=== PATIENT | female | born 1975 | race Two or more races ===

== ENCOUNTER 2016-11-01 19:42 | Emergency (ER) | payer MEDICAID ==
[~2016-11-01] VITALS: Ht 152.4 cm; Wt 87.1 kg
[2016-11-01] MEDS ORDERED: PRENATAL 19 TA1 EAC1 PO (19:51)
[2016-11-01 19:55] VITALS: BP 128/74
[2016-11-01 20:47] LABS: BASOPHILS % (AUTO) 1.4 % (0.0-2.0); EOSINOPHILS % (AUTO) 0.5 % (0.0-3.0); LYMPHOCYTES % (AUTO) 29.7 % (20.0-45.0); MEAN CORPUSCULAR HEMOGLOBIN 30.7 PG (27.0-31.0); MEAN CORPUSCULAR HGB CONC 34.3 G/DL (32.0-36.0); MEAN CORPUSCULAR VOLUME 90 FL (80-99); MEAN PLATELET VOLUME 7.7 FL (6.5-10.1); MONOCYTES % (AUTO) 5.9 % (1.0-10.0); NEUTROPHILS % (AUTO) 62.5 % (45.0-75.0); PLATELET COUNT 226 K/UL (150-450); RED BLOOD COUNT 4.38 M/UL (4.20-5.40); RED CELL DISTRIBUTION WIDTH 12.5 % (11.6-14.8); WHITE BLOOD COUNT 8.6 K/UL (4.8-10.8)
[2016-11-01 20:50] LABS: APPEARANCE,URINE CLEAR; KETONES,URINE NEGATIVE (NEGATIVE); LEUKOCYTE ESTERASE ,URINE NEGATIVE (NEGATIVE); NITRITE,URINE NEGATIVE (NEGATIVE); PH,URINE 6 (4.5-8.0); PROTEIN,URINE NEGATIVE (NEGATIVE); UROBILINOGEN,URINE NORMAL MG/DL (0.0-1.0)
[2016-11-01 20:55] LABS: INR 0.9 (0.9-1.1); PROTHROMBIN TIME 9.3 SEC (9.30-11.50)
[2016-11-01 21:03] LABS: ALANINE AMINOTRANSFERASE 11 U/L (3-33); ALBUMIN/GLOBULIN RATIO 1.4 (1.0-2.7); ANION GAP 14 (5-15); ASPARTATE AMINO TRANSFERASE 15 U/L (5-40); CALCIUM 9.6 mg/dL (8.6-10.2); CARBON DIOXIDE 22 mEQ/L (20-30); CHLORIDE 101 mEQ/L (98-107); CREATININE 0.7 mg/dL (0.5-0.9); GLOMERULAR FILTRATION RATE > 60 mL/min (>60); HEMOLYSIS 33; SODIUM 137 mEQ/L (135-145); TOTAL PROTEIN 7.1 g/dL (6.6-8.7)
[2016-11-01 21:11] LABS: BACTERIA,URINE FEW /HPF; SQUAMOUS EPITHELIAL CELL,UR FEW /LPF (NONE/OCC); WBC,URINE 0-2 /HPF (0 - 2)
--- NOTE | 2016-11-01 21:56 | Emergency Room Report ---
History of Present Illness General Chief Complaint: Vaginal Source: Patient Present Illness HPI The patient is a 41-year-old female at 5 weeks gestation by dates presenting for vaginal bleeding for the past 3 days. She is also complaining of abdominal pain and cramping described as an 8/10 to the mid lower abdomen. No known provoking or relieving factors. She did notice a small piece of tissue pass prior to arrival. She was seen by her primary doctor on 10/26 and had a beta quantitative of 4650. She denies any other symptoms including nausea, vomiting, fever, chills, back pain, dysuria, vaginal discharge Allergies: Coded Allergies: No Known Allergies (Unverified , 11/01/16) Patient History Past Medical History: see triage record Pertinent Family History: none Last Menstrual Period: 10 01 Now: Yes - 5 weeks : 3 Para: 2 Reviewed Nursing Documentation: PMH: Agreed, PSxH: Agreed Nursing Documentation-PMH Past Medical History: No Stated History Review of Systems All Other Systems: negative except mentioned in HPI Physical Exam Vital Signs Date Time Temp Pulse Resp B/P Pulse Ox O2 Delivery O2 Flow Rate FiO2 11/01/16 19:46 97.9 73 16 128/74 99 Room Air Sp02 EP Interpretation: reviewed, normal General Appearance: no apparent distress, alert, GCS 15, non-toxic Head: normocephalic, atraumatic Eyes: bilateral eye PERRL, bilateral eye normal inspection ENT: hearing grossly normal, normal pharynx, no angioedema, normal voice Neck: full range of motion, supple/symm/no masses Gastrointestinal: normal bowel sounds, soft, non-distended, no guarding, no rebound Genitourinary: normal inspection, no CVA tenderness Musculoskeletal: back normal, gait/station normal, normal range of motion, non- tender Neurologic: alert, oriented x3, responsive, motor strength/tone normal, sensory intact, speech normal Psychiatric: judgement/insight normal, memory normal, mood/affect normal, no suicidal/homicidal ideation Skin: normal color, no rash, warm/dry, well hydrated Medical Decision Making PA Attestation Dr. Russo is my supervising physician. Patient management was discussed with my supervising physician Diagnostic Impression: Primary Impression: Threatened miscarriage ER Course THe patient is a 41 yo F at 5 weeks gestation presenting for vaginal bleeding. Differential diagnoses considered include but not limited to threatened , incomplete , ectopic , hemorrhagic cyst, UTI PE: Vitals WNL. NAD. Abdomen: Normal appearance. Non distended. No ecchymosis. Normal BS. Non TTP. No McBurney point tenderness. No guarding. No CVA tenderness Per spd tech, there are no signs of ectopic . There is a gestational sac but it appears to be empty. The patient was informed of these results. She will rest until she is able to followup with her OB for further testing. ER precautions were given Laboratory Tests Test 11/01/16 20:20 White Blood Count 8.6 K/UL (4.8-10.8) Red Blood Count 4.38 M/UL (4.20-5.40) Hemoglobin 13.5 G/DL (12.0-16.0) Hematocrit 39.2 % (37.0-47.0) Mean Corpuscular Volume 90 FL (80-99) Mean Corpuscular Hemoglobin 30.7 PG (27.0-31.0) Mean Corpuscular Hemoglobin Concent 34.3 G/DL (32.0-36.0) Red Cell Distribution Width 12.5 % (11.6-14.8) Platelet Count 226 K/UL (150-450) Mean Platelet Volume 7.7 FL (6.5-10.1) Neutrophils (%) (Auto) 62.5 % (45.0-75.0) Lymphocytes (%) (Auto) 29.7 % (20.0-45.0) Monocytes (%) (Auto) 5.9 % (1.0-10.0) Eosinophils (%) (Auto) 0.5 % (0.0-3.0) Basophils (%) (Auto) 1.4 % (0.0-2.0) Prothrombin Time 9.3 SEC (9.30-11.50) Prothrombin Time INR 0.9 (0.9-1.1) PTT 24 SEC (23-33) Urine Color Pale yellow Urine Appearance Clear Urine pH 6 (4.5-8.0) Urine Specific [place] 1.025 (1.005-1.035) Urine Protein Negative (NEGATIVE) Urine Glucose (UA) Negative (NEGATIVE) Urine Ketones Negative (NEGATIVE) Urine Occult Blood 4+ (NEGATIVE) H Urine Nitrite Negative (NEGATIVE) Urine Bilirubin Negative (NEGATIVE) Urine Urobilinogen Normal MG/DL (0.0-1.0) Urine Leukocyte Esterase Negative (NEGATIVE) Urine RBC 2-4 /HPF (0 - 2) H Urine WBC 0-2 /HPF (0 - 2) Urine Squamous Epithelial Cells Few /LPF (NONE/OCC) Urine Bacteria Few /HPF (NONE) Sodium Level 137 mEQ/L (135-145) Potassium Level 4.0 mEQ/L (3.4-4.9) Chloride Level 101 mEQ/L (98-107) Carbon Dioxide Level 22 mEQ/L (20-30) Anion Gap 14 (5-15) Blood Urea Nitrogen 17 mg/dL (7-23) Creatinine 0.7 mg/dL (0.5-0.9) Estimate Glomerular Filtration Rate > 60 mL/min (>60) Glucose Level 107 mg/dL (74-106) H Calcium Level 9.6 mg/dL (8.6-10.2) Total Bilirubin < 0.2 mg/dL (0.0-1.2) Aspartate Amino Transferase (AST) 15 U/L (5-40) Alanine Aminotransferase (ALT) 11 U/L (3-33) Alkaline Phosphatase 65 U/L (35-104) Total Protein 7.1 g/dL (6.6-8.7) Albumin 4.2 g/dL (3.5-5.2) Globulin 2.9 g/dL Albumin/Globulin Ratio 1.4 (1.0-2.7) Human Chorionic Gonadotropin, Quant 7971 mIU/mL Lab Results Impression CBC, CMP unremarkable. UA shows blood. No infection. Beta quant appropriate for gestational age. CT/MRI/US Diagnostic Results CT/MRI/US Diagnostic Results : Imaging Test Ordered: OB US Impression Within the endometrium, there is a gestational sac. No pole, yolk sac, or heart activity demonstrated. No definite subchorionic hemorrhage. Last Vital Signs Date Time Temp Pulse Resp B/P Pulse Ox O2 Delivery O2 Flow Rate FiO2 11/01/16 19:55 97.9 73 16 128/74 99 Room Air Status: improved Disposition: HOME, SELF-CARE Condition: Improved Patient Instructions: Threatened Miscarriage Additional Instructions: I discussed my findings with the patient. All questions and concerns have been answered. Treatment and medication compliance have been addressed. I advised the patient that they need to follow up with PMD in 3-5 days. Return to ED if symptoms worsen, new symptoms arise, or if needed for any reason. Patient verbalized understanding of discharge instructions. The patient will be discharged home and is told to followup with OB as soon as possible. ER precautions given ANAMARIA SAAB Nov 01, 2016 21:55
[2016-11-01 22:01] VITALS: BP 132/70
--- NOTE | 2016-11-02 15:48 | Diagnostic Imaging Report ---
Indication: Vaginal bleeding x2 days, positive test Technique: Transabdominal and transvaginal images Comparison: None Findings: Uterus measures 9.3 cm length by 5.3 cm AP. Within the endometrium, there is a gestational sac. No pole, yolk sac, or heart activity demonstrated. No definite subchorionic hemorrhage. The cervix demonstrates a small nabothian cyst. No myometrial abnormalities. Right ovary measures 2.4 cm length. The left ovary measures 2.3 cm length. No adnexal mass. No free cul-de-sac fluid. Impression: Intrauterine gestational sac, with out evidence of pole, yolk sac, heart activity. While possibly on the basis of very early intrauterine , absence of parts in the presence of a relatively high hCG (7971) is concerning for nonviable . Correlate with clinical findings and serial beta hCGs, consider followup sonography as clinically indicated Small cervical nabothian cyst
== END 2016-11-01 22:01 | disposition home or self-care (01) ==
LOC: EMR 20:12
DX: O20.0 Threatened abortion (principal); Z3A.01 Less than 8 weeks gestation of pregnancy
CPT/HCPCS: 36415; 76801; 76830; 80053; 81003; 84702; 85025; 85610; 85730; 99284